=== PATIENT | male | born 1980 | race American Indian/Alaskan Native ===

== ENCOUNTER 2016-12-27 11:04 | Emergency (ER) | payer MEDICAID ==
[2016-12-27] MEDS ORDERED: NACL 0.9% IR ONE (13:56)
[2016-12-27] MEDS ORDERED: XYLOCAINE 1% 20 mL INFILTRATI ONE (13:56)
[2016-12-27] MEDS ORDERED: BOOSTRIX IM ONE (13:56)
[2016-12-27] MEDS ORDERED: TORADOL IM ONE (13:57)
[2016-12-27] MEDS ORDERED: CLEOCIN IM ONE (13:57)
--- NOTE | 2016-12-27 14:24 | Emergency Department Report ---
ED General Adult HPI - General Chief complaint: Skin/Abscess/Foreign Body Stated complaint: NECK/CHEST/SHOULDER PAIN/DIZZY Time Seen by Provider: 12/27/16 11:52 Source: patient Mode of arrival: Ambulatory Limitations: No Limitations - History of Present Illness Initial comments: PT c/o bump of the back of his neck. PT states it randomly started 1 week ago. PT states he tried to drain it at home with a steam box operator but he was unable to drain it. PT states after he tried to drain it, he noticed increase in size and pain. PT states he wants the infection cut out. PT states he was seen in this ED 2 years ago and he had to have a neck infection cut out. PT states the neck pain radiates up to his head and down his back. PT states he knows this is related to the infection. MD Complaint: Abscess Onset/Timin -: Gradual, week(s) Location: neck Radiation: non-radiation Severity scale (0 -10): 10 Quality: constant Consistency: constant Improves with: none Worsens with: other (palpation, trying to drain bump at home ) Associated Symptoms: headaches. denies: fever/chills, nausea/vomiting Treatments Prior to Arrival: none - Related Data Home Medications Medication Instructions Recorded Confirmed Last Taken FLUoxetine HCL [Fluoxetine HCl] 20 mg PO DAILY 07/08/16 07/08/16 07/10/16 Haloperidol [Haloperidol] 10 mg PO DAILY 07/08/16 07/08/16 07/10/16 Losartan/Hydrochlorothiazide 1 tab PO DAILY 07/08/16 07/11/16 07/11/16 08:30 [Losartan-Hctz 100-25 mg Tab] Ziprasidone HCl [Geodon] 80 mg PO BID 07/08/16 07/08/16 07/10/16 risperiDONE [RisperDAL] 4 mg PO BID 07/08/16 07/08/16 07/10/16 Previous Rx's Medication Instructions Recorded Last Taken Type Acetaminophen/Codeine [Tylenol #3] 1 tab PO Q6H PRN #12 tab 12/27/16 Unknown Rx Clindamycin [Clindamycin CAP] 300 mg PO Q8H #30 cap 12/27/16 Unknown Rx Losartan/Hydrochlorothiazide 1 each PO DAILY #30 tablet 12/27/16 Unknown Rx [Losartan-Hctz 100-25 mg Tab] Allergies Allergy/AdvReac Type Severity Reaction Status Date / Time No Known Allergies Allergy Verified 12/27/16 11:24 ED Review of Systems ROS: Stated complaint: NECK/CHEST/SHOULDER PAIN/DIZZY Other details as noted in HPI Constitutional: denies: chills, fever, malaise Gastrointestinal: denies: nausea, vomiting Musculoskeletal: as per HPI, back pain Skin: change in color ED Past Medical Hx - Past Medical History Hx Hypertension: Yes Hx Congestive Heart Failure: No Hx Diabetes: No Hx Arthritis: Yes Hx Psychiatric Treatment: Yes (depression / schizophrenia) Hx Asthma: No Hx COPD: No Additional medical history: Keloids. MORBID OBESITY - Surgical History Past Surgical History?: No - Social History Smoking Status: Former Smoker Substance Use Type: Alcohol, Prescribed - Medications Home Medications: Home Medications Medication Instructions Recorded Confirmed Last Taken Type FLUoxetine HCL [Fluoxetine HCl] 20 mg PO DAILY 07/08/16 07/08/16 07/10/16 History Haloperidol [Haloperidol] 10 mg PO DAILY 07/08/16 07/08/16 07/10/16 History Losartan/Hydrochlorothiazide 1 tab PO DAILY 07/08/16 07/11/16 07/11/16 08:30 History [Losartan-Hctz 100-25 mg Tab] Ziprasidone HCl [Geodon] 80 mg PO BID 07/08/16 07/08/16 07/10/16 History risperiDONE [RisperDAL] 4 mg PO BID 07/08/16 07/08/16 07/10/16 History Acetaminophen/Codeine [Tylenol #3] 1 tab PO Q6H PRN #12 tab 12/27/16 Unknown Rx Clindamycin [Clindamycin CAP] 300 mg PO Q8H #30 cap 12/27/16 Unknown Rx Losartan/Hydrochlorothiazide 1 each PO DAILY #30 tablet 12/27/16 Unknown Rx [Losartan-Hctz 100-25 mg Tab] ED Physical Exam - General Limitations: No Limitations General appearance: alert, in no apparent distress, obese - Head Head exam: Present: atraumatic, normocephalic - Eye Eye exam: Present: normal appearance. Absent: conjunctival injection - ENT ENT exam: Present: normal exam - Neck Neck exam: Present: tenderness (to large post neck abscess. fluclant area to R side of post neck ), other (post neck with 16 cm x 4 cm erythema, warmth and tenderness. ) - Respiratory Respiratory exam: Present: normal lung sounds bilaterally (diminshed, likely due to pt's body habitus ) - Cardiovascular Cardiovascular Exam: Present: tachycardia (mildly ) - Extremities Exam Extremities exam: Present: normal inspection, full ROM - Back Exam Back exam: Present: normal inspection. Absent: tenderness, CVA tenderness (R), CVA tenderness (L), muscle spasm, paraspinal tenderness, vertebral tenderness - Neurological Exam Neurological exam: Present: alert, oriented X3 - Psychiatric Psychiatric exam: Present: normal mood, flat affect - Skin Skin exam: Present: warm, dry ED Course Vital Signs 12/27/16 12/27/16 12/27/16 11:26 14:41 16:30 Temperature 98.7 F Pulse Rate 103 H 96 H Respiratory 20 22 20 Rate Blood Pressure 159/110 Blood Pressure 153/102 [Left] O2 Sat by Pulse 95 98 Oximetry - Reevaluation(s) Reevaluation #1: 12/27/16 14:34 PT has also been seen by Dr Abreu who agrees with plan of care. Reevaluation #2: 12/27/16 16:10 PT states his pain improved sp I and D. PT aware he will need to return in 2 days to have the packing removed. PT has no questions at this time. - I & D Posterior Neck Type of Procedure: Simple Site: post neck Blade Size: 11 I & D Procedure: betadine prep, sterile drapes applied, sterile dressing applied , gauze wick placed (1/2 inch iodoform) Progress: Skin cleansed with betadine. 6 mls of 1 % lidocaine used to anesthetize the area. 11 blade used to make an 1.5 cm incision. copious amount of purulent drainage. site flushed with NS, loculations broken up with hemostats and 1/2 inch packing placed. - Pulse Oximetry Interpretation Digit-Finger Initial Pulse Oximetry Readin Actions Taken: none ED Medical Decision Making - Lab Data Result diagrams: 12/27/16 14:08 12/27/16 14:08 - Differential Diagnosis abscess, cellulitis Critical Care Time: No Critical care attestation.: If time is entered above; I have spent that time in minutes in the direct care of this critically ill patient, excluding procedure time. ED Disposition Clinical Impression: Abscess and cellulitis, Leukocytosis, DVT prophylaxis Disposition: DISCHARGED TO HOME OR SELFCARE Is pt being admited?: No Does the pt Need Aspirin: No Condition: Stable Instructions: Abscess Incision and Drainage (ED), Abscess (ED) Additional Instructions: Follow up with PCP to have your bp recheck and your blood sugar rechecked Take your bp medication as prescribed Warm compresses 4 times a day no driving or ETOH after taking Tylenol #3 Return in 2 days for packing removal Return sooner if f/c/n/v Prescriptions: Acetaminophen/Codeine [Tylenol #3] 1 tab PO Q6H PRN #12 tab PRN Reason: Pain , Severe (7-10) Clindamycin [Clindamycin CAP] 300 mg PO Q8H #30 cap Losartan/Hydrochlorothiazide [Losartan-Hctz 100-25 mg Tab] 1 each PO DAILY #30 tablet Referrals: PRIMARY MD DESIREE [Primary Care Provider] - 3-5 Days KYLE JULIEN MD [Staff Physician] - 3-5 Days Time of Disposition: 16:15
[2016-12-27 14:47] LABS: Basophils % (Auto) 0.4 % (0.0-1.8); Eosinophils % (Auto) 0.4 % (0.0-4.3); Hematocrit 49.8 % (35.5-45.6); Hemoglobin 16.5 gm/dl (11.8-15.2); Mean Corpuscular HGB Conc 33 % (32-34); Mean Corpuscular Hemoglobin 30 pg (28-32); Mean Corpuscular Volume 92 fl (84-94); Platelet Count 206 K/mm3 (140-440); Red Blood Count 5.42 M/mm3 (3.65-5.03); White Blood Count 15.5 K/mm3 (4.5-11.0)
[2016-12-27 14:58] LABS: Anion Gap 16 mmol/L; BUN/Creatinine Ratio 13.75; Blood Urea Nitrogen 11 mg/dL (9-20); Calcium 8.8 mg/dL (8.4-10.2); Carbon Dioxide 26 mmol/L (22-30); Chloride 95.4 mmol/L (98-107); Glucose 144 mg/dL (75-100); Potassium 3.6 mmol/L (3.6-5.0); Sodium 134 mmol/L (137-145)
[2016-12-27 16:31] VITALS: BP 153/102
== END 2016-12-27 16:20 | disposition home or self-care (01) ==
LOC: ED 11:04
DX: L02.11 Cutaneous abscess of neck (principal); L03.221 Cellulitis of neck; I82.409 Acute embolism and thrombosis of unspecified deep veins of unspecified lower extremity; I10 Essential (primary) hypertension; F20.9 Schizophrenia, unspecified; Z87.891 Personal history of nicotine dependence
CPT/HCPCS: 10061; 36415; 80048; 82140; 85025; 87040; 87116; 90471; 90715; 96372; 99283; J1885